=== PATIENT | male | born 1990 | race Caucasian/White ===

== ENCOUNTER 2016-08-25 20:47 | Emergency (ER) | payer SELFPAY ==
--- NOTE | ~2016-08-25 | ER ---
PATIENT'S NAME: JOANA AVERY [facility] AGE: 25 Y [address] ROOM: [place] [address] LOCATION: [facility] ADMIT DATE: 08/25/2016 ER/Outpatient Report DISCHARGE DATE: FAMILY PHYSICIAN: PHYSICIAN, NO ATTENDING PHYSICIAN: Franki Schroeder Admission date and time documented on the medical record. I saw the patient at 2115 hours. CHIEF COMPLAINT: Mid abdominal pain with fever. HISTORY OF PRESENT ILLNESS: This patient is a 25-year-old male who has had a 12-hour history of mid abdominal pain. Initially, it started in his mid back and now he has it in his mid abdomen just above his umbilicus. Nausea with vomiting x1. No diarrhea. No urinary frequency, urgency, or dysuria. Had some fever and chills. Temperature is 100.4 tympanic here in the emergency department. No chest pain or shortness of breath. No lightheadedness, dizziness, syncope, or near syncope. No fall or trauma. No headache, eyes, ears, nose, throat, neck pain. No joint muscle swelling, redness, or pain. No skin eruptions or rash. No neuro changes, psych issues or endocrine problems. HOME MEDICATIONS: None. ALLERGIES: NONE. SOCIAL HISTORY: Nonsmoker. Occasional intake of alcohol. SIGNIFICANT PAST MEDICAL HISTORY: Negative. OPERATIONS: None. REVIEW OF SYSTEMS: All systems reviewed by me are negative with the exception of those discussed in the history of present illness. PHYSICAL EXAMINATION: VITAL SIGNS: Temperature 100.4 tympanic, pulse 90, respirations 18, blood pressure 144/89, O2 saturation on room air is 98%. PATIENT'S NAME: JOANA AVERY [facility] AGE: 25 Y [address] ROOM: [place] [address] LOCATION: [facility] ADMIT DATE: 08/25/2016 ER/Outpatient Report DISCHARGE DATE: FAMILY PHYSICIAN: PHYSICIAN, NO ATTENDING PHYSICIAN: Franki Schroeder HEENT: Head: Normocephalic. Eyes: Clear. Ears: Clear TMs bilaterally. Nose: Clear. Throat: Clear. Mucous membranes moist. NECK: No nuchal rigidity. No thyromegaly or cervical lymphadenopathy. No tenderness. SPINE: Nontender. No deformity. LUNGS: Clear. No rales, rhonchi, or wheezes. HEART: Regular. Pulses are palpable. No chest wall or ribcage pain to palpation. ABDOMEN: Soft, tender just above the umbilicus in the mid abdomen, kind of guards in this area. No rebound tenderness. No palpable masses. No organomegaly. No CVA tenderness. EXTREMITIES: Intact. Neurovascularly intact. SKIN: Clear. DIAGNOSTIC DATA: A 3-way abdominal x-ray showed no perforation, obstruction or acute lung infiltrate. We will review x-ray with the radiologist. CMS was normal except for an elevated glucose 110. Amylase and lipase were normal. CPK was normal at 103. CRP was 0.84. H. pylori was negative. White count was 8200, 83 segs, 7 lymphs, 10 monos, 1 baso. Hemoglobin is 15.7, hematocrit 44.7, platelet count is 251,000. Urine showed 2-5 whites, 2-5 reds, 2-5 epithelial cells, rare bacteria per high-powered field. CT scan of the abdomen and pelvis with IV contrast showed no free air or free fluid. All solid organs were normal. There was no abnormalities found. CT scan was read by Radiology, see dictated transcribed report. IMPRESSION: Mid upper abdominal pain, etiology uncertain, most likely abdominal muscle injury. PLAN: The patient was given 1 L of normal saline IV in the emergency room, was given Zofran 4 mg IV in the emergency for nausea and vomiting and morphine 4 mg IV in the emergency room for pain. Discharged home. Observation. Activity as tolerated. Liquid diet for 24 hours and advance diet as tolerated. Heating pad to sore area of the abdomen intermittently as needed. Flexeril 10 mg 3 times a day #30; Zofran ODT as needed for nausea, vomiting #4; tramadol 100 mg every 4-6 hours as needed for pain #16. Follow up with personal physician as needed. Discussion ensued with the patient concerning my findings and recommendations, he understands. PATIENT'S NAME: JOANA AVERY [facility] AGE: 25 Y [address] ROOM: [place] [address] LOCATION: [facility] ADMIT DATE: 08/25/2016 ER/Outpatient Report DISCHARGE DATE: FAMILY PHYSICIAN: PHYSICIANHARLAN ATTENDING PHYSICIAN: Franki Schroeder MD SDS/polol /[id number] d: 08/26/16 0003 t: 08/26/16 1813, OUTPATIENT REPORT
[2016-08-25 21:33] LABS: BILIRUBIN URINE NEGATIVE (NEGATIVE); BLOOD URINE NEGATIVE /UL (NEGATIVE); COLOR URINE YELLOW (YELLOW); GLUCOSE URINE NEGATIVE (NEGATIVE); KETONE URINE 50 mg/dL (NEGATIVE); LEUKOCYTES URINE 25 /UL (NEGATIVE); NITRITE URINE NEGATIVE (NEGATIVE); PROTEIN URINE NEGATIVE (NEGATIVE); TURBIDITY URINE CLEAR (CLEAR); UROBILINOGEN URINE 1 mg/dL (NORMAL)
[2016-08-25 21:45] LABS: BASOPHIL % 0.5 %; HEMATOCRIT 44.7 % (37.0-53.0); HEMOGLOBIN 15.7 g/dL (12.0-17.0); IMMATURE GRANULOCYTE % 0.5 %; LYMPHOCYTE # 0.5 K/uL (0.8-4.0); LYMPHOCYTE % 6.5 %; MCH 29.8 pg (27.0-34.0); MCHC 35.1 gm/dL (32.0-36.5); MONOCYTE # 0.8 K/uL (0.0-1.0); MONOCYTE % 9.6 %; MPV 8.9 fl (9.4-12.4); NEUTROPHIL # (ANC) 6.8 K/uL (1.4-9.0); NEUTROPHIL % 82.9 %; NRBC % 0 /100WBC (0-0.00); PLATELET COUNT 251 K/uL (150-450); RBC 5.26 M/uL (4.00-6.00); RDW-CV 12.3 % (11.9-14.6); WBC 8.2 K/uL (4.0-11.0)
[2016-08-25 21:47] LABS: BACTERIA URINE RARE (NEGATIVE)
[2016-08-25 22:20] LABS: ALBUMIN 4.6 gm/dL (3.5-5.0); ALK PHOS 75 IU/L (33-138); ALT 47 IU/L (12-78); ANION GAP 14.8 (10.0-19.0); AST 23 IU/L (10-40); BLOOD UREA NITROGEN 16 mg/dL (6-24); CALCIUM 9.5 mg/dL (8.5-10.5); CHLORIDE 102 mMol/L (96-110); CO2 25 mMol/L (22-32); CPK 103 IU/L (35-332); CREATININE 0.9 mg/dL (0.6-1.3); ESTIMATED GFR (MDRD EQUATION) > 60; POTASSIUM 3.8 mMol/L (3.7-5.1); SODIUM 138 mMol/L (135-145); TOTAL BILIRUBIN 1.4 mg/dL (0.0-1.5); TOTAL PROTEIN 7.6 g/dL (6.0-8.4)
== END 2016-08-25 23:32 | disposition disaster alternative care site (69) ==
LOC: GMED 20:47
PROVIDERS: Emergency Medicine
DX: R10.10 Upper abdominal pain, unspecified (principal)
CPT/HCPCS: J2270; J2405; J7030; Q9967